=== PATIENT | male | born 1965 | race Hispanic/Latino ===

== ENCOUNTER 2021-06-14 08:26 | Outpatient (RCR) | payer OTHER | END 2021-06-15 | LOC: PT 08:26 | PROVIDERS: ATTEND Family Medicine | DX: I61.1 Nontraumatic intracerebral hemorrhage in hemisphere, cortical (principal) ==

== ENCOUNTER 2021-06-23 13:33 | Outpatient (RCR) | payer OTHER | END 2021-07-16 | LOC: PT 13:33 | PROVIDERS: ATTEND Family Medicine | DX: I61.1 Nontraumatic intracerebral hemorrhage in hemisphere, cortical (principal) | CPT/HCPCS: 97139 ==